=== PATIENT | female | born 1995 | race African-American/Black ===

== ENCOUNTER 2018-08-31 23:56 | Emergency (ER) | payer MEDICAID ==
[~2018-08-31] VITALS: Ht 165.1 cm; Wt 86.0 kg
[2018-09-01 00:51] LABS: CHLORIDE 105 mEq/L (98-107)
[2018-09-01 00:55] LABS: EOSINOPHILS % 1.8 % (0.0-5.0); HEMATOCRIT. 36.9 % (36.0-48.0); HEMOGLOBIN. 12.7 g/dL (12.0-16.0); LYMPHOCYTES % 38.1 % (20.0-50.0); MEAN CORPUSCULAR HEMOGLOBIN 29.4 pg (28.0-32.0); MEAN CORPUSCULAR VOLUME 85.4 fL (81.0-99.0); MEAN PLATELET VOLUME 8.1 fl (7.4-10.4); MONOCYTES % 7.5 % (2.0-8.0); NEUTROPHILS % 51.6 % (40.0-76.0); PLATELET 328 x1000/uL (130-400); RED BLOOD CELL COUNT 4.32 mill/uL (4.2-5.4); RED CELL DISTRIBUTION WIDTH 14.1 % (11.6-14.6)
[2018-09-01 00:56] LABS: ETHANOL BLOOD < 10 mg/dL
[2018-09-01 01:20] LABS: HCG SCREEN NEGATIVE
[2018-09-01] MEDS ORDERED: HALOPERIDOL 2MG TABLET PO ONE (03:00)
[2018-09-01 03:35] LABS: CLARITY URINE CLOUDY (CLEAR); COLOR URINE YELLOW (YELLOW); KETONES URINE NEGATIVE (NEGATIVE); LEUKOCYTE ESTERASE URINE 2+ (NEGATIVE); NITRITE URINE NEGATIVE (NEGATIVE); OCCULT BLOOD URINE 1+ (NEGATIVE); PH URINE 7.5 (4.5-8.0); PROTEIN URINE NEGATIVE (NEGATIVE); SPECIFIC GRAVITY URINE 1.004 (1.005-1.030); UROBILINOGEN URINE 0.2 E.U./dL (0.2-1.0)
[2018-09-01 03:46] LABS: *AMPHETAMINES SCREEN URINE NEGATIVE (NEGATIVE); *BARBITURATES SCREEN URINE NEGATIVE (NEGATIVE); *COCAINE SCREEN URINE NEGATIVE (NEGATIVE)
[2018-09-01 03:47] LABS: *BENZODIAZEPINES SCREEN URINE NEGATIVE (NEGATIVE); CANNABINOID URINE SCREEN NEGATIVE (NEGATIVE); METHADONE URINE SCREEN NEGATIVE (NEGATIVE); OPIATES URINE SCREEN NEGATIVE (NEGATIVE); PHENCYCLIDINE URINE SCREEN NEGATIVE (NEGATIVE)
[2018-09-01] MEDS ORDERED: NITROFURANTOIN 100MG M/M CAPSULE PO ONE (11:00)
[2018-09-01] MEDS: NITROFURANTOIN 100MG M/M CAPSULE PO SCH (21:00)
[2018-09-01] MEDS ORDERED: IBUPROFEN 600MG TABLET PO ONE (23:00)
[2018-09-02] MEDS: NITROFURANTOIN 100MG M/M CAPSULE PO SCH (09:36)
[2018-09-02 12:33] VITALS: BP 124/72
== END 2018-09-02 12:38 | disposition home or self-care (01) ==
LOC: ER 23:56 → CANBEDREQ 09-01 02:34 → ER 09-02 12:38
DX: F32.9 Major depressive disorder, single episode, unspecified (principal); R45.851 Suicidal ideations; Z87.891 Personal history of nicotine dependence; R74.0 Nonspecific elevation of levels of transaminase and lactic acid dehydrogenase [LDH]
CPT/HCPCS: 81025; 99283